=== PATIENT | male | born 1940 | race Caucasian/White ===

== ENCOUNTER 2017-07-13 08:45 | Emergency (ER) | payer MEDICARE, OTHER ==
--- NOTE | 2017-07-13 08:56 | ER Document Report ---
ED Neuro Symptoms/Deficit - General Stated Complaint: LEFT SIDE WEAKNESS Time Seen by Provider: 07/13/17 08:55 Mode of Arrival: Medic Notes: Patient states that he woke up this morning and was fine. Walk to the mailbox to get the newspaper. Came back and noticed that he was unable to move his right arm and right leg. Had weakness on the right side. No obvious slurred speech. EMS arrived. Did appreciate right-sided weakness but no facial droop. Currently patient with mild facial droop on the right side but no slurred speech. No difficulty swallowing. Patient has an NIH stroke scale of [address] arrival. Stat head CT ordered. Head CT shows previous multiple infarcts. With patient's previous history and current history of multiple myeloma with abnormalities on blood work will need to get stat CBC. Consult radiology and getting stat MRI at this time as must exclude neoplasm at this time before getting thrombolytics as well as evaluate his platelet counts. - HPI Patient complains to provider of: Difficulty standing, Difficulty walking, Facial Droop, Paresthesia, Weakness Onset: Just prior to arrival Duration: Better, Continues in ED Quality of pain: No pain Severity: Severe Pain Level: 0 Was STROKE ALERT Called: Yes Baseline Cognitive: Alert, oriented X 3 Baseline Gait: Walks w/o assistance Pre-existing weakness: No: Face, General, Hand, Lower extremity, Upper extremity Alert To: Name/Voice Patient Orientation: Person, Place, Time, Events Character of altered mental status: No: Agitated, Confused, Combative, Decreased responsiveness, Disoriented, Seizure activity, Trouble concentrating, Unchanged from baseline, Unresponsive New weakness: RUE, RLE, R facial Altered sensation: RUE, RLE, R facial Decreased ability to stand/walk: Cannot walk, Cannot stand Vision problem/glaucoma: No Associated symptoms: None - Related Data Allergies/Adverse Reactions: No Known Allergies Allergy (Unverified 07/13/17 09:34) Past Medical History - General Information source: Patient - Social History Smoking Status: Never Smoker Cigarette use (# per day): No Smoking Education Provided: No Frequency of alcohol use: None Drug Abuse: None Lives with: Family Family History: None, Reviewed & Not Pertinent - Past Medical History Cardiac Medical History: Reports: None Pulmonary Medical History: Reports: None EENT Medical History: Reports: None Neurological Medical History: Reports: None Endocrine Medical History: Reports: None Renal/ Medical History: Reports: None Malignancy Medical History: Reports Other - Multiple myeloma GI Medical History: Reports: None Musculoskeltal Medical History: Reports None Skin Medical History: Reports None Psychiatric Medical History: Reports: None Review of Systems - Review of Systems Constitutional: Weakness. denies: Fever, Malaise EENT: denies: Eye pain, Eye discharge, Blurred vision, Tearing, Double vision, Difficulty swallowing, Mouth pain Respiratory: denies: Cough, Hurts to breathe, Short of breath, Wheezing Gastrointestinal: denies: Abdominal pain, Diarrhea, Nausea, Vomiting Genitourinary: denies: Dysuria, Discharge, Hematuria Musculoskeletal: Other - Weakness on right side. Weakness right upper extremity , right lower extremity Skin: No symptoms reported Hematologic/Lymphatic: Easy bleeding, Easy bruising, Other - Strip multiple myeloma. denies: Blood clots Neurological/Psychological: See HPI, Sensory change, Weakness, Gait changes, Numbness Physical Exam - Vital signs Interpretation: Normal - General General appearance: Appears well, Alert - HEENT Head: Normocephalic, Atraumatic Eyes: Normal Pupils: PERRL Notes: Patient does have slight asymmetry with smile on the right side of the face. Does not involve the forehead muscles. Slight deviation of the tongue - Respiratory Respiratory status: No respiratory distress Chest status: Nontender Breath sounds: Normal Chest palpation: Normal - Cardiovascular Rhythm: Regular Heart sounds: Normal auscultation Murmur: No - Abdominal Inspection: Normal Distension: No distension Bowel sounds: Normal Tenderness: Nontender Organomegaly: No organomegaly - Back Back: Normal, Nontender - Extremities General upper extremity: Normal inspection, Nontender, Normal color, Normal ROM , Normal temperature General lower extremity: Normal inspection, Nontender, Normal color, Normal ROM , Normal temperature, Normal weight bearing. No: Kiley's sign - Neurological Neuro grossly intact: Yes Cognition: Normal Orientation: AAOx4 [place] Coma Scale Eye Opening: Spontaneous [place] Coma Scale Verbal: Oriented [place] Coma Scale Motor: Obeys Commands [place] Coma Scale Total: 15 Speech: Normal Cranial nerves: Facial palsy, Forehead sparing, Sensory deficit, Tongue deviation Cerebellar coordination: No: Finger-nose rhombey Motor strength normal: LUE, LLE. No: RUE, RLE Additional motor exam normals: Pronator drift, Weakness. No: Equal cleaner carpet and upholstery Sensory: Altered light touch - Psychological Associated symptoms: Normal affect, Normal mood - Skin Skin Temperature: Warm Skin Moisture: Dry Skin Color: Normal Course - Re-evaluation Re-evalutation: 07/13/17 09:32 By criteria patient has had an acute infarct infecting most likely the left middle cerebral artery. Patient's symptoms are mildly improving but still noticeably abnormal. With his history of malignancy I am hesitant to give thrombolytics. Ordering a stat MRI as having a lesion in the brain which could be causing this would be catastrophic in the setting of lumbar lytics. Will give aspirin. Head CT reviewed. No hemorrhage. Patient does manifest signs on CT scan of multiple CVAs per 07/13/17 10:06 MRI does not show any lesions other than acute CVA as expected. No neoplasm. Spoke with the family while patient was at MRI. Apparently patient has dementia. is the power of real estate attorney and medical decision maker. On discussing the risks and benefits associated with thrombolytics the says that she does not wish for me to give thrombolytics at this time. They are requesting immediate transfer [facility] where [facility] specialists [facility]. I am attempting to speak with the neurologist and get patient transferred immediately. 07/13/17 10:15 Discussed the case with neurologist at [facility] by Dr. Walls. Will activate stroke airlift procedures at this time. Recommends giving patient a 500 L bolus of normal saline at this time. - Laboratory Result Diagrams: 07/13/17 08:58 07/13/17 08:58 - EKG Interpretation by Me EKG shows normal: Sinus rhythm, Intervals, QRS Complexes, ST-T Waves [place]/QRS: Left axis deviation Critical Care Note - Critical Care Note Total time excluding time spent on procedures (mins): 60 Comments: Acute CVA, consultation with specialists, coordination of care ED [employer]/Exc Criteria - Date/Time patient last known well: Date/Time: - Inclusion Criteria: 1: Patient presented to ED within 3 hours of acute ischemic stroke symptom onset ? -: Yes 2: Did baseline CT exclude intracranial hemorrhage and/or other risk factors? -: Yes 3: Is the age of the patient 18 years of age or greater? -: Yes : If any of the above questions are answered "NO" then stop, patient is not a candidate for Alteplase, : If all of the above questions are answered "YES" then continue with Exclusion Criteria. - Exclusion Criteria: 1: Is there evidence of intracranial hemorrhage on baseline CT? -: No 2: Is there suspicion of subarachnoid hemorrhage (even if CT negative)? -: No 3: Is there a history of serious head trauma, recent previous stroke or NC within 3 months? -: No 4: Does the patient have a clinical presentation consistent with NC or post-NC pericarditis? -: No 5: Is there history of intracranial hemorrhage? -: No 6: On repeated measurement is Systolic BP greater than 185mmHg or Diastolic BP greater that 110 mmHg and is aggressive treatment needed to reduce blood pressure to these limits (e.g. constant infusion of an anti-hypertensive)? -: No 7: Did the patient awake with stroke symptoms? -: No 8: Has the patient had a lumbar puncture or an arterial puncture at a non- compressile site within 7 days? -: No 9: With in the last 14 days did the patient have surgery or major trauma? -: No 10: Is the patient or less than 2 weeks? -: No 11: Was there any active bleeding or acute trauma? -: No 12: Does the patient have intracranial neoplasm, arteriovenous malformation or aneurysm? -: No 13: Does the patient have abnormal glucose (less than 50 or greater than 400mg/ dl)? Record glucose in Comment. -: No 14: Patient has rapidly improving symptoms at the time Alteplase is to be Administered. -: No 15: Does the patient have any risks for bleeding, including but not limited to: a.: Current use of Coumadin with PT greater than 15 seconds or INR greater than 1.7. b.: Current use of Pradaxa (Dabigatran). c.: Heparin administereed within the past 48 hours and PTT elevated. d.: Platelet count less than 100,000/mm. e.: Major surgery or serious trauma within 14 days. f.: Gastrointestinal or gynecological urinary bleeding within 14 days. g.: Myocardial Infarction (NC) within 3 months. -: No : If the answer to any of the above questions is "YES" then stop, the patient is not a candidate for Alteplase. : If the answer to all of the above questions is "NO" then the patient may be eligible for the Administration of Alteplase. : If the patient is noted to have seizure activity at onset of Stroke symptoms; Consult Neurologist for further evaluation. - The patient is: -: Included and is eligible to receive Alteplase. *Initiate bed placement at higher level of care* --: Yes Reviewd risks & benefits of thrombolytic therapy: I have reviewed the risks and benefits of thrombolytic therapy with the patient and/or his/her family. Yes -: Excluded and not eligible to receive Alteplase for the above exclusions. --: No -: Excluded and not eligible to receive Alteplase for other reasons (specify in comments): --: No - Diagnosis of TIA: -: Patient presented with transient symptoms that are now resolved and no other neurologic findings are currently present. List symptoms in comments. -: No -: Patient is NOT a candidate for tPA. -: No -: ____(put name in comment) has been consulted for admission and continued evaluation of risk factor assessment. Discharge - Discharge Clinical Impression: Acute embolic stroke Condition: Good Disposition: [facility] Admitting Provider: Dr. Walls Referrals: SHIVANI HUFF MD [Primary Care Provider] - Follow up as needed
[2017-07-13] MEDS ORDERED: ASPIRIN 81 MG TABLET, CHEWABLE PO ONE (09:02)
[2017-07-13 09:07] LABS: ABSOLUTE BASOPHILS # (AUTO) 0.1 10^3/uL (0.0-0.2); ABSOLUTE EOSINOPHILS # (AUTO) 0.1 10^3/uL (0.0-0.6); ABSOLUTE LYMPHOCYTES (AUTO) 1.1 10^3/uL (0.5-4.7); ABSOLUTE MONOCYTES (AUTO) 0.4 10^3/uL (0.1-1.4); BASOPHILS % (AUTO) 0.9 % (0-2); EOSINOPHILS % (AUTO) 1.7 % (0-6); HEMATOCRIT 41.7 % (37.9-51.0); LYMPHOCYTES % (AUTO) 16.8 % (13-45); MEAN CORPUSCULAR HEMOGLOBIN 29.3 pg (27.0-33.4); MEAN CORPUSCULAR HGB CONC 33.7 g/dL (32.0-36.0); MEAN CORPUSCULAR VOLUME 87 fl (80-97); MONOCYTES % (AUTO) 5.8 % (3-13); PLATELET COUNT 113 10^3/uL (150-450); RED BLOOD COUNT 4.79 10^6/uL (4.35-5.55); RED CELL DISTRIBUTION WIDTH 14.3 % (11.5-14.0); SEGMENTED NEUTROPHILS % (AUTO) 74.8 % (42-78); TOTAL CELLS COUNTED % (AUTO) 100 %; WHITE BLOOD COUNT 6.7 10^3/uL (4.0-10.5)
--- NOTE | 2017-07-13 09:07 | RADIOLOGY REPORT (SQ) ---
EXAM DESCRIPTION: CT HEAD WITHOUT COMPLETED DATE/TIME: 07/13/2017 8:56 am REASON FOR STUDY: bed 11 stroke alert COMPARISON: None. TECHNIQUE: Axial images acquired through the brain without intravenous contrast. Images reviewed wi th bone, brain and subdural windows. Images stored on PACS. All CT scanners at this facility use dose modulation, iterative reconstruction, and/or weight based d osing when appropriate to reduce radiation dose to as low as reasonably achievable (ALARA). [facility]: Dose Right [facility]: CareDose [facility]: Dose Right [facility]: Teradose 4D [facility]: [employer] RADIATION DOSE: 64.6 mGy. LIMITATIONS: None. FINDINGS: VENTRICLES: Normal size and contour. CEREBRUM: No masses. No acute hemorrhage. No midline shift. No evidence for large territory acute infarction. There is moderate bifrontal and biparietal chronic small vessel ischemic change. Old lac unar infarcts are present in the left frontal deep periventricular white matter, right posterior limb internal capsule and right thalamus. CEREBELLUM: Multiple chronic appearing lacunar infarcts are present in the bilateral cerebellar hemis pheres. No posterior fossa acute hemorrhage. No mass effect or midline shift. EXTRAAXIAL SPACES: No fluid collections. No masses. ORBITS AND GLOBE: No intra- or extraconal masses. Normal contour of globe without masses. CALVARIUM: No fracture. PARANASAL SINUSES: No fluid or mucosal thickening. SOFT TISSUES: No mass or hematoma. OTHER: No other significant finding. IMPRESSION: Chronic appearing small vessel disease in the hemispheres with multiple lacunar infarcts in the hemispheres and cerebellum. No CT evidence of acute intracranial hemorrhage or acute large territory ischemic change EVIDENCE OF ACUTE STROKE: NO. COMMENT: Pertinent findings on the imaging study reported as a CRITICAL RESULT to NEELIMA PARSON DO at08:50 on 07/13/2017. Category of Critical Result: CT code stroke Quality ID # [id number]: Final reports with documentation of one or more dose reduction techniques (e.g., Au tomated exposure control, adjustment of the mA and/or kV according to patient size, use of iterative reconstruction technique) TECHNICAL DOCUMENTATION: JOB ID: [id number] [employer]- All Rights Reserved
[2017-07-13 09:09] LABS: INTERNATIONAL RATION (INR) 0.96; PROTHROMBIN TIME 13.5 SEC (11.4-15.4)
[2017-07-13 09:10] LABS: PARTIAL THROMBOPLASTIN TIME 31.4 SEC (23.5-35.8)
[2017-07-13 09:30] LABS: ANION GAP 10 (5-19); BILIRUBIN,DIRECT 0.3 mg/dL (0.0-0.4); BILIRUBIN,TOTAL 0.5 mg/dL (0.2-1.3); CALCIUM 9.5 mg/dL (8.4-10.2); CARBON DIOXIDE 27 mmol/L (22-30); CHLORIDE 104 mmol/L (98-107); CREATINE KINASE 38 U/L (55-170); GLUCOSE 202 mg/dL (75-110); SODIUM 140.6 mmol/L (137-145); TOTAL PROTEIN 7.2 g/dL (6.3-8.2)
[2017-07-13 09:32] LABS: BLOOD UREA NITROGEN 19 mg/dL (7-20)
[2017-07-13 09:33] LABS: ALANINE AMINOTRANSFERASE 22 U/L (21-72); ALKALINE PHOSPHATASE 41 U/L (38-126); ASPARTATE AMINO TRANSFERASE 43 U/L (17-59); POTASSIUM 4.3 mmol/L (3.6-5.0)
[2017-07-13 09:42] LABS: CREATINE KINASE MB 0.56 ng/mL (<4.55)
[2017-07-13 09:45] LABS: TROPONIN I < 0.012 ng/mL
[2017-07-13] MEDS ORDERED: ALTEPLASE INJ 100 MG VIAL IV ONE (09:53)
--- NOTE | 2017-07-13 10:07 | RADIOLOGY REPORT (SQ) ---
EXAM DESCRIPTION: MRI HEAD WITHOUT COMPLETED DATE/TIME: 07/13/2017 9:55 am REASON FOR STUDY: Acute right-sided weakness with history of multipl COMPARISON: CT brain 07/13/2017 TECHNIQUE: Multiplanar imaging includes non-contrasted T1, T2, FLAIR, and diffusion with ADC map seq uences. Images stored on PACS. LIMITATIONS: None. FINDINGS: ANATOMY: No developmental anomalies. Normal vascular flow voids. Pituitary fossa normal. CSF SPACES: Normal in size and contour. No hemorrhage. CEREBRUM: Diffusion-weighted images are positive for a small acute infarct in the left posterior limb internal capsule/ lateral thalamus, best shown on diffusion axial image 16. There is moderate deep periventricular white matter disease in the bifrontal and biparietal regions. Old lacunar infarcts are present in the left posterior frontal deep periventricular white matter, ri ght posterior internal capsule, right thalamus. No MR evidence of acute intracranial hemorrhage. No mass effect or midline shift. POSTERIOR FOSSA: Moderate chronic small vessel disease in the mid [place]. Multiple old lacunar infarct s in the right and left cerebellar hemispheres. No acute ischemic change in the posterior fossa. No acute hemorrhage. No mass effect. DIFFUSION IMAGING: Positive as above ORBITS: No masses. Globes normal. PARANASAL SINUSES: Opacified right frontal sinus OTHER: No other significant finding. IMPRESSION: Small acute nonhemorrhagic infarct, positive on diffusion weighted images along the left posterior limb internal capsule/ lateral thalamus EVIDENCE OF ACUTE STROKE: Yes COMMENT: Pertinent findings on the imaging study reported as a CRITICAL RESULT to NEELIMA PARSON DO at09:45 on 07/13/2017. Category of Critical Result: Acute nonhemorrhagic stroke TECHNICAL DOCUMENTATION: JOB ID: [id number] [employer]- All Rights Reserved
[2017-07-13] MEDS ORDERED: NORMAL SALINE 500 ML IV ONE (10:16)
--- NOTE | 2017-07-13 10:29 | RADIOLOGY REPORT (SQ) ---
EXAM DESCRIPTION: CHEST SINGLE VIEW COMPLETED DATE/TIME: 07/13/2017 10:16 am REASON FOR STUDY: bed 11 stroke alert COMPARISON: None. EXAM PARAMETERS: NUMBER OF VIEWS: One view. TECHNIQUE: Single frontal radiographic view of the chest acquired. RADIATION DOSE: NA LIMITATIONS: Poor inspiration. FINDINGS: LUNGS AND PLEURA: No opacities, masses or pneumothorax. No pleural effusion. MEDIASTINUM AND HILAR STRUCTURES: No masses. Contour normal. HEART AND VASCULAR STRUCTURES: Heart and vasculature within normal limits allowing for the poor inspi ration. BONES: No acute findings. HARDWARE: None in the chest. OTHER: No other significant finding. IMPRESSION: NO ACUTE RADIOGRAPHIC FINDING IN THE CHEST. TECHNICAL DOCUMENTATION: JOB ID: [id number] [employer]- All Rights Reserved
[2017-07-13 10:46] VITALS: BP 160/81
--- NOTE | 2017-07-13 13:00 | EKG REPORT ---
SEVERITY:- BORDERLINE ECG - SINUS RHYTHM LEFT AXIS DEVIATION CONSIDER RIGHT VENTRICULAR HYPERTROPHY BORDERLINE R WAVE PROGRESSION, ANTERIOR LEADS : Confirmed by: Dane Flowers MD 13-Jul-2017 12:59:30
== END 2017-07-13 10:50 | disposition short-term general hospital (02) ==
LOC: ER 08:45
DX: I63.412 Cerebral infarction due to embolism of left middle cerebral artery (principal); G81.94 Hemiplegia, unspecified affecting left nondominant side; R29.810 Facial weakness; H53.47 Heteronymous bilateral field defects; R27.0 Ataxia, unspecified
CPT/HCPCS: 93005; 99291; 36415; 82553; 82550; 85025; 85610; 85730; 80053; 84484; 70551; 71045; 70450; 93010; A9270

== ENCOUNTER 2019-03-27 10:05 | Observation (INO) | payer MEDICARE, OTHER ==
--- NOTE | 2019-03-27 11:37 | RADIOLOGY REPORT (SQ) ---
EXAM DESCRIPTION: CT HEAD WITHOUT COMPLETED DATE/TIME: 03/27/2019 11:26 am REASON FOR STUDY: ams/fall/vomit COMPARISON: 07/13/2017. TECHNIQUE: Axial images acquired through the brain without intravenous contrast. Images reviewed wi th bone, brain and subdural windows. Additional sagittal and coronal reconstructions were generated. Images stored on PACS. All CT scanners at this facility use dose modulation, iterative reconstruction, and/or weight based d osing when appropriate to reduce radiation dose to as low as reasonably achievable (ALARA). [facility]: Dose Right [facility]: CareDose [facility]: Dose Right [facility]: Teradose 4D [facility]: [employer] RADIATION DOSE: CT Rad equipment meets quality standard of care and radiation dose reduction techniq ues were employed. CTDIvol: 53.2 mGy. DLP: 1017 mGy-cm. mGy. LIMITATIONS: None. FINDINGS: VENTRICLES: Prominent. CEREBRUM: No masses. No hemorrhage. No midline shift. Areas of low density in the white matter mos t likely due to chronic micro-vascular ischemic change. Old lacunar infarcts. No evidence for acute infarction. CEREBELLUM: No masses. No hemorrhage. No alteration of density. No evidence for acute infarction. EXTRAAXIAL SPACES: Mild age-related involutional change. No fluid collections. No masses. ORBITS AND GLOBE: No intra- or extraconal masses. Normal contour of globe without masses. CALVARIUM: No fracture. PARANASAL SINUSES: No fluid or mucosal thickening. SOFT TISSUES: No mass or hematoma. OTHER: No other significant finding. IMPRESSION: MILD CHRONIC CHANGES OF ATROPHY AND MICROVASCULAR ISCHEMIA. OLD LACUNAR INFARCTS. NO A CUTE PROCESS. EVIDENCE OF ACUTE STROKE: NO. TECHNICAL DOCUMENTATION: JOB ID: [id number] Quality ID # [id number]: Final reports with documentation of one or more dose reduction techniques (e.g., Au tomated exposure control, adjustment of the mA and/or kV according to patient size, use of iterative reconstruction technique) 2010 [employer]- All Rights Reserved Reading location - IP/workstation name: [email or web address]
[2019-03-27 11:48] LABS: ABSOLUTE BASOPHILS # (AUTO) 0.1 10^3/uL (0.0-0.2); ABSOLUTE EOSINOPHILS # (AUTO) 0.1 10^3/uL (0.0-0.6); ABSOLUTE LYMPHOCYTES (AUTO) 1.7 10^3/uL (0.5-4.7); ABSOLUTE MONOCYTES (AUTO) 0.5 10^3/uL (0.1-1.4); ABSOLUTE NEUT (AUTO) 5.9 10^3/uL (1.7-8.2); BASOPHILS % (AUTO) 0.8 % (0-2); EOSINOPHILS % (AUTO) 1.3 % (0-6); HEMATOCRIT 41.1 % (37.9-51.0); HEMOGLOBIN 13.7 g/dL (13.5-17.0); LYMPHOCYTES % (AUTO) 20.5 % (13-45); MEAN CORPUSCULAR HEMOGLOBIN 30.2 pg (27.0-33.4); MEAN CORPUSCULAR HGB CONC 33.3 g/dL (32.0-36.0); MEAN CORPUSCULAR VOLUME 91 fl (80-97); MONOCYTES % (AUTO) 5.7 % (3-13); RED BLOOD COUNT 4.53 10^6/uL (4.35-5.55); RED CELL DISTRIBUTION WIDTH 14.6 % (11.5-14.0); SEGMENTED NEUTROPHILS % (AUTO) 71.7 % (42-78); TOTAL CELLS COUNTED % (AUTO) 100 %; WHITE BLOOD COUNT 8.2 10^3/uL (4.0-10.5)
[2019-03-27 11:52] LABS: ALBUMIN 3.9 g/dL (3.5-5.0); ALKALINE PHOSPHATASE 36 U/L (38-126); ANION GAP 7 (5-19); ASPARTATE AMINO TRANSFERASE 25 U/L (17-59); BILIRUBIN,DIRECT 0.3 mg/dL (0.0-0.4); BLOOD UREA NITROGEN 22 mg/dL (7-20); CALCIUM 9.4 mg/dL (8.4-10.2); CARBON DIOXIDE 26 mmol/L (22-30); CHLORIDE 107 mmol/L (98-107); GLUCOSE 131 mg/dL (75-110); POTASSIUM 4.1 mmol/L (3.6-5.0); TOTAL PROTEIN 7.2 g/dL (6.3-8.2)
[2019-03-27 13:40] LABS: PLATELET COUNT 90 10^3/uL (150-450)
[2019-03-27 13:48] LABS: APPEARANCE,URINE SLIGHTLY-CLOUDY; BILIRUBIN,URINE NEGATIVE (NEGATIVE); COLOR,URINE YELLOW; GLUCOSE, URINE NEGATIVE (NEGATIVE); KETONES,URINE TRACE mg/dL (NEGATIVE); LEUKOCYTE ESTERASE,URINE NEGATIVE (NEGATIVE); NITRITE,URINE NEGATIVE (NEGATIVE); PROTEIN,URINE 30 mg/dL (NEGATIVE); URINE SPECIFIC GRAVITY 1.024
--- NOTE | 2019-03-27 15:07 | ER Document Report ---
ED Fall - General Chief Complaint: Fall Stated Complaint: FALL/VOMITING Time Seen by Provider: 03/27/19 10:16 Primary Care Provider: SHIVANI HUFF MD [Primary Care Provider] - Follow up as needed Mode of Arrival: Stretcher Information source: Patient TRAVEL OUTSIDE OF THE [place] IN LAST 30 DAYS: No - HPI Notes: 78-year-old male patient brought in by ambulance. Family is in the room and gives the history. Patient has dementia and is not a good historian. Family states they called the ambulance today because after eating breakfast the patient got up to walk into another room of the house. As he was walking he fell to the ground and was not responsive for several minutes. He also was vomiting during this episode. Upon arrival here at family states they feel he is back to normal. They states he had a similar episode 2 years ago and was given TPA for stroke at that time. Patient does have frequent falls at home per family. Family also states that all of his recent meds have been discontinued per his doctor except for Aricept and aspirin. Patient has had no recent fevers cough or rashes. No known significant trauma. Patient denies any pain or problems at this time. Symptoms were apparently severe. Nothing known made them better or worse. They were intermittent. Lasting approximately 5 to 10 minutes. There is no known radiation of the symptoms. - Related data Allergies/Adverse Reactions: No Known Allergies Allergy (Unverified 07/13/17 09:34) Past Medical History - Social History Smoking Status: Former Smoker Frequency of alcohol use: None Drug Abuse: None Family History: None, Reviewed & Not Pertinent Patient has suicidal ideation: No Patient has homicidal ideation: No - Past Medical History Cardiac Medical History: Reports: Hx Hypertension - unmedicated Renal/ Medical History: Denies: Hx Peritoneal Dialysis Past Surgical History: Reports: Hx Tonsillectomy Review of Systems - Review of Systems -: Yes ROS unobtainable due to patient's medical condition - Review of symptoms is unobtainable due to patient's dementia Physical Exam - Vital signs Vitals: Temp Pulse Resp BP Pulse Ox 97.6 F 55 L 18 138/75 H 94 03/27/19 10:20 03/27/19 10:20 03/27/19 10:20 03/27/19 10:20 03/27/19 10:20 Interpretation: Normal - General General appearance: Appears well, Alert In distress: None - HEENT Head: Normocephalic, Atraumatic Eyes: Normal Pupils: PERRL - Respiratory Respiratory status: No respiratory distress Chest status: Nontender Breath sounds: Normal Chest palpation: Normal - Cardiovascular Rhythm: Regular Heart sounds: Normal auscultation Murmur: No - Abdominal Inspection: Normal Distension: No distension Bowel sounds: Normal Tenderness: Nontender Organomegaly: No organomegaly - Back Back: Normal, Nontender - Extremities General upper extremity: Normal inspection, Nontender, Normal color, Normal ROM, Normal temperature General lower extremity: Normal inspection, Nontender, Normal color, Normal ROM, Normal temperature, Normal weight bearing. No: Kiley's sign - Neurological Cognition: Confused Orientation: Disoriented to place, Disoriented to time Brenna Coma Scale Eye Opening: Spontaneous [place] Coma Scale Verbal: Confused Brenna Coma Scale Motor: Obeys Commands [place] Coma Scale Total: 14 Speech: Normal Motor strength normal: LUE, RUE, LLE, RLE Sensory: Normal - Psychological Associated symptoms: Normal affect, Normal mood - Skin Skin Temperature: Warm Skin Moisture: Dry Skin Color: Normal Course - Re-evaluation Re-evalutation: 03/27/19 15:05 Patient is brought in after an episode at home where he had syncope and vomit ing. Work-up here is unremarkable. However this is a 78-year-old patient with dementia he cannot give me a good history. It seems most prudent at this time for patient to have a period of in-hospital observation for the syncope. - Vital Signs Vital signs: Temp Pulse Resp BP Pulse Ox 97.6 F 55 L 15 173/81 H 96 03/27/19 10:20 03/27/19 10:20 03/27/19 13:02 03/27/19 13:02 03/27/19 13:02 - Laboratory Result Diagrams: 03/27/19 10:13 03/27/19 10:13 Laboratory results interpreted by me: 03/27/19 03/27/19 03/27/19 10:13 10:13 12:42 RDW 14.6 H Plt Count 90 L BUN 22 H Est GFR (MDRD) Non-Af 59 L Glucose 131 H Alkaline Phosphatase 36 L Urine Protein 30 H Urine Ketones TRACE H Urine Urobilinogen 2.0 H - Diagnostic Test Radiology reviewed: Image reviewed, Reports reviewed - EKG Interpretation by Me EKG shows normal: Sinus rhythm Rate: Bradycardia - 50 Rhythm: NSR, PVC's [place]/QRS: Left axis deviation Discharge - Discharge Clinical Impression: Syncope and collapse Dementia Qualifiers: Dementia type: Alzheimer's disease Alzheimer's disease onset: late-onset Dementia behavioral disturbance: without behavioral disturbance Qualified Code(s): G30.1 - Alzheimer's disease with late onset; F02.80 - Dementia in other diseases classified elsewhere without behavioral disturbance Condition: Stable Disposition: ADMITTED OBSERVATION Admitting Provider: Vlad (Hospitalist) Unit Admitted: Medical Floor Referrals: SHIVANI HUFF MD [Primary Care Provider] - Follow up as needed
[2019-03-27] MEDS ORDERED: MAG HYDROX/AL HYDROX/SIMETH SUSP 30 ML UDCUP PO PRN (17:32)
[2019-03-27] MEDS ORDERED: ONDANSETRON 4 MG TAB.RAPDIS PO PRN (17:32)
[2019-03-27] MEDS ORDERED: ACETAMINOPHEN 325 MG TABLET PO PRN (17:32)
[2019-03-27] MEDS ORDERED: ACETAMINOPHEN 650 MG SUPP.RECT PR PRN (17:32)
[2019-03-27] MEDS ORDERED: MAGNESIUM HYDROXIDE SUSP 30 ML UDCUP PO PRN (17:32)
[2019-03-27] MEDS ORDERED: NORMAL SALINE 1000 ML 1,000 ML IV PRN (18:16)
[2019-03-27] MEDS ORDERED: AMLODIPINE BESYLATE 5 MG TABLET PO ONE (18:20)
--- NOTE | 2019-03-27 18:30 | PDOC H&P ---
History of Present Illness Admission Date/PCP: 03/27/19 15:19 SHIVANI HUFF MD Patient complains of: Physical collapse with episode of emesis. History of Present Illness: MULUGETA MATHEWS is a 78 year old male with a history of stroke approximately 2 years ago. He also has a history of multiple myeloma in 2009. He is status post stem cell transplant at [facility]. Since that time he has had some left-sided weakness/numbness. He uses a walker around the home. His reports that he ate breakfast in his usual fashion. When he was walking back to the bedroom he felt weak. He collapsed like a rag doll. He did not pass out but he felt dazed. His reports that he "hit "his head on a soft pillow or bag but no sharp object. They had him sit up and he proceeded to vomit. She did remove his dentures. That he did not report any significant coughing with the emesis. By the time the paramedics arrived he had no more vomiting but still felt slightly nauseous. His stroke was approximately 2 years ago. He has had several of these episodes and the last one was approximately 5 months ago. The patient's reports that he used to take medication for hypertension but was taken off of the medicine because of low blood pressure. In addition he has chronic dementia and the patient's stopped his Aricept because she thought it made him "worse ". The family is quite concerned about stroke. The patient had a minimally elevated BUN. He does have thrombocytopenia. Electrolytes and liver panel as well as CBC was relatively unremarkable. He did exhibit some proteinuria. In addition, during my encounter, I did find out that over the last several months the patient has exhibited coughing when eating and drinking. This occurs especially with thin liquids. The patient was referred to the hospital service. Past Medical History Cardiac Medical History: Reports: Hypertension - unmedicated Denies: Congestive Heart Failure, Coronary Artery Disease, Myocardial Infarction Pulmonary Medical History: Denies: Asthma, Chronic Obstructive Pulmonary Disease (COPD), Respiratory Failure EENT Medical History: Denies: Ears, Nose, Throat Neurological Medical History: Reports: Ischemic CVA Endocrine Medical History: Denies: Diabetes Mellitus Type 2, Hypothyroidism Renal/ Medical History: Denies: Chronic Kidney Disease, Nephrolithiasis Malignancy Medical History: Reports: None GI Medical History: Denies: Cirrhosis, Gastroesophageal Reflux Disease, Hepatitis, Ulcerative Colitis Musculoskeltal Medical History: Denies: Arthritis, Fibromyalgia Skin Medical History: Denies: Eczema, Psoriasis Psychiatric Medical History: Denies: Alcohol Dependency, Depression, Post Traumatic Stress Disorder, Substance Abuse, Tobacco Dependency Traumatic Medical History: Reports: None Hematology: Denies: Anemia, Bleeding Tendencies Infectious Medical History: Reports: None Past Surgical History Past Surgical History: Reports: Tonsillectomy, Other - Stem cell transplant Social History Information Source: Patient, Relative Lives with: Spouse/Significant other Smoking Status: Former Smoker Frequency of Alcohol Use: None Hx Recreational Drug Use: No Hx Prescription Drug Abuse: No - Advance Directive Resuscitation Status: Full Code Surrogate healthcare decision maker:: The patient's is the designated decision maker. The patient did have a DNR and living well in the past. They believe these have . The patient's daughter was adamant that he be a full code and stated that alternate decisions can be made if there is a catastrophic event. Family History Family History: CAD Parental Family History Reviewed: Yes - They believe mother had heart disease Children Family History Reviewed: Yes Sibling(s) Family History Reviewed.: Yes Medication/Allergy Home Medications: Aspirin [Ecotrin 81 mg EC Tablet] 81 mg PO DAILY 03/27/19 Allergies/Adverse Reactions: No Known Allergies Allergy (Unverified 07/13/17 09:34) Review of Systems Constitutional: PRESENT: weakness. ABSENT: anorexia, chills, fever(s) Eyes: PRESENT: visual disturbances - Left eye not as clear as right eye Ears: ABSENT: hearing changes Nose, Mouth, and Throat: ABSENT: headache(s), mouth pain, sore throat Cardiovascular: PRESENT: edema - Trace pedal edema. ABSENT: chest pain, dyspnea on exertion, palpitations Respiratory: ABSENT: cough, dyspnea, hemoptysis, sputum Gastrointestinal: PRESENT: constipation - reports that the patient tends towards constipation, dysphagia, nausea, vomiting. ABSENT: abdominal pain, heartburn, hematemesis Genitourinary: PRESENT: nocturia, other - Frequent urination. ABSENT: dysuria, hematuria Musculoskeletal: ABSENT: deformity, joint swelling Integumentary: PRESENT: other - Easy bruising. ABSENT: diaphoresis Neurological: PRESENT: memory loss Psychiatric: ABSENT: anxiety, depression, hallucinations Endocrine: PRESENT: polyuria. ABSENT: cold intolerance, heat intolerance Hematologic/Lymphatic: PRESENT: easy bruising Physical Exam Vital Signs: Temp Pulse Resp BP Pulse Ox 97.6 F 55 L 13 177/84 H 97 03/27/19 10:20 03/27/19 10:20 03/27/19 17:02 03/27/19 17:02 03/27/19 17:02 Intake & Output 03/26/19 03/27/19 03/28/19 06:59 06:59 06:59 Weight 91.6 kg General appearance: PRESENT: no acute distress, cooperative, well-developed Head exam: PRESENT: atraumatic, normocephalic Eye exam: PRESENT: conjunctiva pale, EOMI. ABSENT: nystagmus, PERRLA - Anisocoria with left pupil larger than right. Left pupil is not as reactive as the right., scleral icterus Ear exam: PRESENT: normal external ear exam. ABSENT: bleeding, drainage Mouth exam: PRESENT: moist, tongue midline, other - Dentures Neck exam: ABSENT: carotid bruit, thyromegaly, tracheostomy Respiratory exam: PRESENT: clear to auscultation navya, symmetrical, unlabored. ABSENT: accessory muscle use, rales, rhonchi, tachypnea, wheezes Cardiovascular exam: PRESENT: RRR, +S1, +S2, systolic murmur - 1/6 Pulses: PRESENT: normal radial pulses, normal dorsalis pedis pul GI/Abdominal exam: PRESENT: normal bowel sounds, soft. ABSENT: distended, tenderness Rectal exam: PRESENT: deferred Gentrourinary exam: ABSENT: indwelling catheter Extremities exam: PRESENT: pedal edema. ABSENT: joint swelling, tenderness Musculoskeletal exam: PRESENT: normal inspection. ABSENT: deformity, tenderness Neurological exam: PRESENT: alert, awake, oriented to person, oriented to place, oriented to situation Psychiatric exam: PRESENT: appropriate affect. ABSENT: agitated, anxious Focused psych exam: ABSENT: delusional, restlessness Skin exam: PRESENT: dry, warm, other - Multiple ecchymotic areas especially left arm and hand Results Laboratory Results: 03/27/19 10:13 03/27/19 10:13 03/27/19 03/27/19 03/27/19 10:13 10:13 12:42 WBC 8.2 RBC 4.53 Hgb 13.7 Hct 41.1 MCV 91 MCH 30.2 MCHC 33.3 RDW 14.6 H Plt Count 90 L Seg Neutrophils % 71.7 Sodium 139.5 Potassium 4.1 Chloride 107 Carbon Dioxide 26 Anion Gap 7 BUN 22 H Creatinine 1.20 Est GFR ( Amer) > 60 Glucose 131 H Calcium 9.4 Total Bilirubin 1.0 AST 25 Alkaline Phosphatase 36 L Total Protein 7.2 Albumin 3.9 Urine Color YELLOW Urine Appearance SLIGHTLY-CLOUDY Urine pH 5.0 Ur Specific [place] 1.024 Urine Protein 30 H Urine Glucose (UA) NEGATIVE Urine Ketones TRACE H Urine Blood NEGATIVE Urine Nitrite NEGATIVE Ur Leukocyte Esterase NEGATIVE Urine WBC (Auto) 1 Urine RBC (Auto) 1 03/27/19 10:13 Troponin I < 0.012 Impressions: Head CT 03/27/19 11:02 IMPRESSION: MILD CHRONIC CHANGES OF ATROPHY AND MICROVASCULAR ISCHEMIA. OLD LACUNAR INFARCTS. NO ACUTE PROCESS. EVIDENCE OF ACUTE STROKE: NO. Assessment and Plan - Diagnosis (1) Syncope and collapse Is this a current diagnosis for this admission?: Yes Plan: 03/27/2019-the patient's reports that he became globally weak and went down like a rag doll as opposed to a mechanical trip and fall. He is not sure if he passed out or not. The family does not think he passed out. When they sat him up on the floor he proceeded to vomit. The patient's had to remove his dentures so that he did not choke on them. He does have a history of high blood pressure but he was taken off medication because they felt the blood pressure was too low. CT scan was negative for recurrent stroke. He has been on an aspirin daily. There is no report to suggest that he was post ictal. We will monitor the patient on telemetry to rule out any arrhythmia. I am going to give him gentle fluids even though systolic pressure is up. His BUN is slightly elevated. His does report that he urinates often and so on a make sure he is euvolemic. Etiology of collapse is very unclear at this time. No definite etiology is identified. (2) Dementia Qualifiers: Dementia type: Alzheimer's disease Alzheimer's disease onset: late-onset Dementia behavioral disturbance: without behavioral disturbance Qualified Code(s): G30.1 - Alzheimer's disease with late onset; F02.80 - Dementia in other diseases classified elsewhere without behavioral disturbance Is this a current diagnosis for this admission?: Yes Plan: 03/27/2019-the patient has a history of stroke. This certainly could be vascular dementia. He has been on Aricept. The family reports that it is Alzheimer's. The patient's stopped his Aricept because she felt it was making him worse. We will continue to monitor. He is able to have meaningful conversation and was appropriate for this encounter. (3) Thrombocytopenia Is this a current diagnosis for this admission?: Yes Plan: 03/27/2019-the patient platelet count was only 90,000. I will hold off on prophylactic VTE treatment. If his platelets increase then consider adding back a heparin or Lovenox shot. We will continue his aspirin. (4) Gait disorder Is this a current diagnosis for this admission?: Yes Plan: 03/27/2019-the patient uses a walker. His states that he has had episodes like this in the past. His balance is not the best. I will have physical therapy evaluate the patient. He might benefit from physical therapy at home post discharge. (5) Dysphagia as late effect of cerebrovascular accident (CVA) Is this a current diagnosis for this admission?: Yes Plan: 03/27/2019-the patient and family report noticeably increased coughing when eating and drinking over the last several months. This certainly could be a result of progressive dementia whether it be Alzheimer's or cerebrovascular. He does have a history of a stroke as well. I have asked speech therapy to see the patient. I have ordered a regular diet but instructed nursing to change to nectar thick liquids if the patient does poorly on his bedside swallow evaluation. (6) Hypertension Qualifiers: Hypertension type: essential hypertension Qualified Code(s): I10 - Essential (primary) hypertension Is this a current diagnosis for this admission?: Yes Plan: 03/27/2019-the patient has a history of hypertension. As noted above the patient's physician stopped antihypertensive medications in the past. Because of his elevated systolic pressure of started amlodipine 5 mg daily. Diuretics were consideration but he may be slightly hypovolemic. We will continue to monitor his blood pressure. Tomorrow I will see if the family can remember the blood pressure medicines that he has been on in the past. We will also consider checking orthostatic vital signs. - Plan Summary Summary: Admit to observation status. Etiology of syncope and collapse is uncertain at this time. We will monitor his blood pressure and treat conservatively. I will also have speech therapy see the patient for clearly progressing dysphagia and physical therapy to assess his gait and strength as it is my opinion that this is likely part of a progressive dementia situation as well. - Time Time Spent with patient: 35 or more minutes Medications reviewed and adjusted accordingly: Yes Within: within 48 hours
--- NOTE | 2019-03-27 23:18 | EKG REPORT ---
SEVERITY:- ABNORMAL ECG - SINUS RHYTHM MULTIPLE VENTRICULAR PREMATURE COMPLEXES LEFT AXIS DEVIATION : Confirmed by: Jazlyn Bond 27-Mar-2019 23:17:40
[2019-03-28 04:20] LABS: ABSOLUTE BASOPHILS # (AUTO) 0.1 10^3/uL (0.0-0.2); ABSOLUTE EOSINOPHILS # (AUTO) 0.1 10^3/uL (0.0-0.6); ABSOLUTE MONOCYTES (AUTO) 0.7 10^3/uL (0.1-1.4); ABSOLUTE NEUT (AUTO) 6.2 10^3/uL (1.7-8.2); BASOPHILS % (AUTO) 0.7 % (0-2); HEMATOCRIT 39.5 % (37.9-51.0); HEMOGLOBIN 13.3 g/dL (13.5-17.0); LYMPHOCYTES % (AUTO) 21.8 % (13-45); MEAN CORPUSCULAR HEMOGLOBIN 29.7 pg (27.0-33.4); MEAN CORPUSCULAR HGB CONC 33.8 g/dL (32.0-36.0); MEAN CORPUSCULAR VOLUME 88 fl (80-97); MONOCYTES % (AUTO) 8.2 % (3-13); RED BLOOD COUNT 4.49 10^6/uL (4.35-5.55); RED CELL DISTRIBUTION WIDTH 14.6 % (11.5-14.0); SEGMENTED NEUTROPHILS % (AUTO) 68.3 % (42-78); TOTAL CELLS COUNTED % (AUTO) 100 %; WHITE BLOOD COUNT 9.1 10^3/uL (4.0-10.5)
[2019-03-28 04:34] LABS: ANION GAP 6 (5-19); BLOOD UREA NITROGEN 20 mg/dL (7-20); CALCIUM 9.3 mg/dL (8.4-10.2); CARBON DIOXIDE 26 mmol/L (22-30); CHLORIDE 109 mmol/L (98-107); GLUCOSE 86 mg/dL (75-110); POTASSIUM 4.2 mmol/L (3.6-5.0)
[2019-03-28 04:41] LABS: PLATELET COUNT 79 10^3/uL (150-450)
[2019-03-28] MEDS ORDERED: INFLUENZA QUAD (6MOS+) 2019-20 VAC 0.5 ML SYR IM ONE (08:00)
[2019-03-28] MEDS ORDERED: AMLODIPINE BESYLATE 5 MG TABLET PO SCH (10:00)
[2019-03-28] MEDS ORDERED: ENOXAPARIN SODIUM INJ 40 MG/0.4 ML DISP.SYRIN SUBCUT SCH (10:00)
[2019-03-28] MEDS: DOCUSATE SODIUM 100 MG CAPSULE PO SCH (10:27)
[2019-03-28] MEDS: ASPIRIN 81 MG TABLET, ENT COATED PO SCH (10:27)
--- NOTE | 2019-03-28 13:42 | PDOC PROGRESS REPORT ---
Subjective Progress Note for:: 03/28/19 Subjective:: MULUGETA MATHEWS is a 78 year old male with a history of stroke approximately 2 years ago. He also has a history of multiple myeloma in 2009. He is status post stem cell transplant at [facility]. Since that time he has had some left-sided weakness/numbness. He uses a walker around the home. His reports that he ate breakfast in his usual fashion. When he was walking back to the bedroom he felt weak. He collapsed like a rag doll. He did not pass out but he felt dazed. His reports that he "hit "his head on a soft pillow or bag but no sharp object. They had him sit up and he proceeded to vomit. She did remove his dentures. That he did not report any significant coughing with the emesis. By the time the paramedics arrived he had no more vomiting but still felt slightly nauseous. His stroke was approximately 2 years ago. He has had several of these episodes and the last one was approximately 5 months ago. The patient's reports that he used to take medication for hypertension but was taken off of the medicine because of low blood pressure. In addition he has chronic dementia and the patient's stopped his Aricept because she thought it made him "worse ". The family is quite concerned about stroke. The patient had a minimally elevated BUN. He does have thrombocytopenia. Electrolytes and liver panel as well as CBC was relatively unremarkable. He did exhibit some proteinuria. In addition, during my encounter, I did find out that over the last several months the patient has exhibited coughing when eating and drinking. This occurs especially with thin liquids. The patient was referred to the hospital service. 03/28/2019. No acute events overnight. Denies any fever, chills, nausea, vomiting, diarrhea, constipation or any urinary symptoms. Nausea vomiting has improved. Has been evaluated by speech therapy, patient was noted to be aspirating, no new diet recommendation has been placed, pending modified barium swallow. Reason For Visit: NAUSEA AND VOMITING,NEAR SYNCOPE,DYSPHAGIA Physical Exam Vital Signs: Temp Pulse Resp BP Pulse Ox 98.1 F 55 L 17 161/67 H 94 03/28/19 12:00 03/28/19 12:00 03/28/19 12:00 03/28/19 12:00 03/28/19 12:00 Intake & Output 03/27/19 03/28/19 03/29/19 06:59 06:59 06:59 Intake Total 330 240 Output Total 150 150 Balance 180 90 Weight 92.5 kg General appearance: PRESENT: no acute distress, well-developed, well-nourished Head exam: PRESENT: atraumatic, normocephalic Neck exam: ABSENT: carotid bruit, JVD, lymphadenopathy, thyromegaly Respiratory exam: PRESENT: clear to auscultation navya. ABSENT: rales, rhonchi, wheezes Cardiovascular exam: PRESENT: RRR. ABSENT: diastolic murmur, rubs, systolic murmur GI/Abdominal exam: PRESENT: normal bowel sounds, soft. ABSENT: distended, guarding, mass, organolmegaly, rebound, tenderness Neurological exam: PRESENT: alert, altered, awake, oriented to person, oriented to place, CN II-XII grossly intact Results Laboratory Results: 03/28/19 03:47 03/28/19 03:47 03/27/19 03/27/19 03/28/19 10:13 12:42 03:47 WBC 8.2 9.1 RBC 4.53 4.49 Hgb 13.7 13.3 L Hct 41.1 39.5 MCV 91 88 MCH 30.2 29.7 MCHC 33.3 33.8 RDW 14.6 H 14.6 H Plt Count 90 L 79 L Seg Neutrophils % 71.7 68.3 Sodium Potassium Chloride Carbon Dioxide Anion Gap BUN Creatinine Est GFR ( Amer) Glucose Calcium Magnesium Urine Color YELLOW Urine Appearance SLIGHTLY-CLOUDY Urine pH 5.0 Ur Specific [place] 1.024 Urine Protein 30 H Urine Glucose (UA) NEGATIVE Urine Ketones TRACE H Urine Blood NEGATIVE Urine Nitrite NEGATIVE Ur Leukocyte Esterase NEGATIVE Urine WBC (Auto) 1 Urine RBC (Auto) 1 03/28/19 03:47 WBC RBC Hgb Hct MCV MCH MCHC RDW Plt Count Seg Neutrophils % Sodium 141.0 Potassium 4.2 Chloride 109 H Carbon Dioxide 26 Anion Gap 6 BUN 20 Creatinine 1.21 Est GFR ( Amer) > 60 Glucose 86 Calcium 9.3 Magnesium 1.9 Urine Color Urine Appearance Urine pH Ur Specific [place] Urine Protein Urine Glucose (UA) Urine Ketones Urine Blood Urine Nitrite Ur Leukocyte Esterase Urine WBC (Auto) Urine RBC (Auto) 03/27/19 10:13 Troponin I < 0.012 Impressions: Head CT 03/27/19 11:02 IMPRESSION: MILD CHRONIC CHANGES OF ATROPHY AND MICROVASCULAR ISCHEMIA. OLD LACUNAR INFARCTS. NO ACUTE PROCESS. EVIDENCE OF ACUTE STROKE: NO. Assessment and Plan - Diagnosis (1) Syncope and collapse Is this a current diagnosis for this admission?: Yes Plan: Patient and family has denied any syncope or any seizure. EKG no acute changes except for PVCs. Troponin negative. CT head negative. Appears euvolemic. Orthostatic vitals WNL. Continue telemetry, fall, seizure precautions. Continue aspirin. Monitor vitals. (2) Dementia Qualifiers: Dementia type: Alzheimer's disease Alzheimer's disease onset: late-onset Dementia behavioral disturbance: without behavioral disturbance Qualified Code(s): G30.1 - Alzheimer's disease with late onset; F02.80 - Dementia in other diseases classified elsewhere without behavioral disturbance Is this a current diagnosis for this admission?: Yes Plan: Likely vascular dementia due to history of stroke. Used to take Aricept, was stopped by family. CBC WNL. MCV WNL. He is able to hold a meaningful conversation. Will obtain B12, folic acid TSH, T3 and T4. Continue supportive measures. (3) Dysphagia as late effect of cerebrovascular accident (CVA) Is this a current diagnosis for this admission?: Yes Plan: Likely due to underlying CVAs. Speech therapy has been consulted. Dietary recommendation has been noted. Pending modified barium swallow. Follow-up recommendations. (4) Gait disorder Is this a current diagnosis for this admission?: Yes Plan: Chronic. Likely due to remote CVA. Continue PT. (5) Hypertension Qualifiers: Hypertension type: essential hypertension Qualified Code(s): I10 - Essen tial (primary) hypertension Is this a current diagnosis for this admission?: Yes Plan: Euvolemic. Normotensive. Orthostatics are WNL. Not taking any antihypertensives at home. Was stopped due to hypotension. (6) Thrombocytopenia Is this a current diagnosis for this admission?: Yes Plan: Chronic. No sign of acute bleeding. Monitor for bleeding. Patient PCP follow-up.
--- NOTE | 2019-03-29 09:19 | ST Inp Modified Barium Swallow ---
Medical Diagnosis - Medical Diagnoses Medical Diagnosis Description & ICD-10 Code(s): Multiple Myeloma, hypertension, hisotry of ischemic CVA, hypertension ST Inpatient [facility] [place] - General Date: 03/29/19 Date of Onset: 03/28/19 - History History Obtained From: Patient -: Medical Medications: Medications Reviewed - Subjective Current Nutritional Means: PO Current PO Diet: Mechanical - cut, Thickened liquids - On nectar Current Symptoms: Coughing, other - Chronic throat clearing - Objective Assessment: Left Lateral - Food Trials Food Trials Used: Thin liquids, [place] thick liquids, Pureed, Regular The Patient: Was Able to Self Feed, via cup - Assessment Labial Function: Within Normal Limits Lingual Function: Within Functional Limits - Mildly reduced base of tongue retraction leading to residuals Mandibular Function: Within Normal Limits Dentition: Partial, Dentures-Upper - Upper dentures not fully affixed. Velo-Pharyngeal Function: Other - Soft palate elevation noted. No bolus between soft palate and pharyngeal wall Laryngeal Function: Throat Clear, Volitional Swallow - Pharyngeal Stage Initiation of Pharyngeal Stage: Delayed - Initiation at the head of the valleculae Decreased Laryngeal Elevation: Yes - Mildly decreased elevation Reduced Velo-Pharyngeal Closure: no Reduced Pressure Generation: No Reduced Tongue Base Retraction: Yes - Trace column of contrast Pre-Swallowing Pooling in Valleculae: None Pre-Swallowing Pooling in Pyriforms: None Reduced Epiglottic Excursion: No Reduced Pharyngeal Peristalsis: No Multiple Swallows With: Cleared w/ Liquid Assist Post Swallow Residuals in Valleculae: Mild - Mild residue noted across consistencies, cleared with multiple swallows Post Swallow Residuals in Pyriforms: None Pahryngeal Stage Comments: Mildly delayed swallow initation and reduced laryngeal elevation. Trace transient penetration with thin liquids. No aspiration. - Esophageal Stage Cricophageal Function: Normal Upper Esophageal Transit: Normal Cervical Osteophytes Noted: No - Impression/Summary Laryngeal Penetration: Flash - Mild penetration above level of the vocal folds- ejected, during swallow Tracheal Aspiration: no Effective Clearing: yes Patient Presents With: Oral-Pharyngeal dysph. - Patient demontrated reduced mastication of solid food likely due to partial dentition and poorly affixed upper dentures. Delayed initation of pharyngeal swallow and reduced laryngeal elevation lead to mild penetration above the level of the vocal folds with thin liquids. No aspiration noted, therefore, safe to drink thin liquids Risk of Aspiration: Minimal Risk Due To: History of CVA, hypertension - Recommendations NPO: no Solid Diet Recommendations: Mechanical Soft - To aid in oral manipulation. Cut meats Liquid Diet Recommendations: Thin Strict Aspitarion Precautions: No Dysphagia Therapy with FREELANCE DATA ENTRY: No Recommended Techniques: Fully Upright During Meal, Small Bites and Sips Supervision: Independent Other Recommendations: Oral care with toothbrush, even though patient has partial dentition - Time Total Time: 20 Total Timed Minutes: 0
--- NOTE | 2019-03-29 09:26 | RADIOLOGY REPORT (SQ) ---
EXAM DESCRIPTION: BASSAM SWALLOW COMPLETED DATE/TIME: 03/29/2019 9:00 am REASON FOR STUDY: suspect aspiration D50.8 OTHER IRON DEFICIENCY ANEMIAS COMPARISON: None. TECHNIQUE: Videofluoroscopic swallowing examination was performed in conjunction with speech patholo gy. Videofluoroscopic imaging was obtained and reviewed and these are the findings: RADIATION DOSE: Fluoro time 2.34 minutes 1 images saved to PACS. LIMITATIONS: None FINDINGS: The patient was brought into the fluoro room and placed upright on a modified barium swall ow chair. The patient was then given multiple consistencies mixed with barium to swallow under live fluoroscopic video guidance. According to the Speech Pathologist there was laryngeal penetration see n with thin barium. No aspiration identified. All other consistencies were swallowed without incide nt. Please refer to the speech pathology report for further details. IMPRESSION: LARYNGEAL PENETRATION, WITHOUT ASPIRATION, SEEN WITH THIN BARIUM. PLEASE SEE SPEECH PATH OLOGIST REPORT FOR OTHER FINDINGS AND RECOMMENDATIONS. COMMENT: None Quality ID [id number]: Final reports for procedures using fluoroscopy that document radiation exposure hannah skylar, or exposure time and number of fluorographic images (if radiation exposure indices are not avail able) TECHNICAL DOCUMENTATION: JOB ID: [id number] [employer]- All Rights Reserved Reading location - IP/workstation name: [email or web address] [id number]
[2019-03-29] MEDS ORDERED: CHLORTHALIDONE 25 MG TABLET PO SCH (10:00)
[2019-03-29] MEDS: ASPIRIN 81 MG TABLET, ENT COATED PO SCH (10:18)
[2019-03-29] MEDS: DOCUSATE SODIUM 100 MG CAPSULE PO SCH (10:18)
[2019-03-29 16:34] VITALS: BP 146/78
--- NOTE | 2019-03-30 17:35 | PDOC DISCHARGE SUMMARY ---
Impression - Admit/DC Date/PCP Admission Date/Primary Care Provider: 03/27/19 15:19 SHIVANI HUFF MD Discharge Date: 03/29/19 - Discharge Diagnosis (1) Syncope and collapse Is this a current diagnosis for this admission?: Yes (2) Dementia Is this a current diagnosis for this admission?: Yes (3) Dysphagia as late effect of cerebrovascular accident (CVA) Is this a current diagnosis for this admission?: Yes (4) Gait disorder Is this a current diagnosis for this admission?: Yes (5) Hypertension Is this a current diagnosis for this admission?: Yes (6) Thrombocytopenia Is this a current diagnosis for this admission?: Yes - Additional Information Resuscitation Status: Full Code Discharge Diet: Regular Discharge Activity: Activity As Tolerated Referrals: SHIVANI HUFF MD [Primary Care Provider] - 04/03/19 2:00 pm Prescriptions: Chlorthalidone [Hygroton 25 mg Tablet] 25 mg PO DAILY 30 Days #3 tablet Home Medications: Aspirin [Ecotrin 81 mg EC Tablet] 81 mg PO DAILY 03/27/19 Chlorthalidone [Hygroton 25 mg Tablet] 25 mg PO DAILY 30 Days #3 tablet 03/29/19 History of Present Illiness History of Present Illness: MULUGETA MATHEWS is a 78 year old male Hospital Course Hospital Course: (1) Syncope and collapse Patient and family has denied any syncope or any seizure. Unidentified cause. EKG no acute changes except for PVCs. Troponin negative. CT head negative. Appears euvolemic. Orthostatic vitals WNL. Continud telemetry, fall, seizure precautions. Received PT ST OT. Physical therapy consulted, no PT recommended. Continued on aspirin. Monitor vitals. (2) Dementia Likely vascular dementia due to history of stroke. Used to take Aricept, was stopped by family. CBC WNL. MCV WNL. He is able to hold a meaningful conversation. Supportive measures. Lives with . Independent. (3) Dysphagia as late effect of cerebrovascular accident (CVA) Likely due to underlying CVAs. Speech therapy has been consulted. Had a modified barium swallow. Speech therapy recommendations are as follows: NPO: no Solid Diet Recommendations: Mechanical Soft - To aid in oral manipulation. Cut meats Liquid Diet Recommendations: Thin Strict Aspitarion Precautions: No Dysphagia Therapy with CERTIFIED MEDICAL ASST: No Recommended Techniques: Fully Upright During Meal, Small Bites and Sips Supervision: Independent Other Recommendations: Oral care with toothbrush, even though patient has partial dentition Patient was notified and counseled about speech therapy recommendations. (4) Gait disorder Chronic. Likely due to remote CVA. Received PT, OT, ST. Fall precautions employed. (5) Hypertension Euvolemic. Normotensive. Orthostatics are WNL. Not taking any antihypertensives at home. BP meds were stopped due to hypotension in the past. Was noted to be hypertensive. Was started on chlorthalidone. Normotensive and euvolemic at the time of discharge. Discharged on chlorthalidone to follow-up with PCP. (6) Thrombocytopenia Chronic. No sign of acute bleeding. Monitored for bleeding. Patient PCP follow-up. Physical Exam Vital Signs: Temp Pulse Resp BP Pulse Ox 98.2 F 67 18 134/73 H 94 03/29/19 16:06 03/29/19 16:06 03/29/19 16:06 03/29/19 16:06 03/29/19 16:06 Intake & Output 03/29/19 03/30/19 03/31/19 06:59 06:59 06:59 Intake Total 480 480 Output Total 600 200 Balance -120 280 Weight 72.4 kg Results Laboratory Results: WBC 9.1 10^3/uL (4.0-10.5) 03/28/19 03:47 RBC 4.49 10^6/uL (4.35-5.55) 03/28/19 03:47 Hgb 13.3 g/dL (13.5-17.0) L 03/28/19 03:47 Hct 39.5 % (37.9-51.0) 03/28/19 03:47 MCV 88 fl (80-97) 03/28/19 03:47 MCH 29.7 pg (27.0-33.4) 03/28/19 03:47 MCHC 33.8 g/dL (32.0-36.0) 03/28/19 03:47 RDW 14.6 % (11.5-14.0) H 03/28/19 03:47 Plt Count 79 10^3/uL (150-450) L 03/28/19 03:47 Lymph % (Auto) 21.8 % (13-45) 03/28/19 03:47 Griggs % (Auto) 8.2 % (3-13) 03/28/19 03:47 Eos % (Auto) 1.0 % (0-6) 03/28/19 03:47 Baso % (Auto) 0.7 % (0-2) 03/28/19 03:47 Absolute Neuts (auto) 6.2 10^3/uL (1.7-8.2) 03/28/19 03:47 Absolute Lymphs (auto) 2.0 10^3/uL (0.5-4.7) 03/28/19 03:47 Absolute Monos (auto) 0.7 10^3/uL (0.1-1.4) 03/28/19 03:47 Absolute Eos (auto) 0.1 10^3/uL (0.0-0.6) 03/28/19 03:47 Absolute Basos (auto) 0.1 10^3/uL (0.0-0.2) 03/28/19 03:47 Seg Neutrophils % 68.3 % (42-78) 03/28/19 03:47 Sodium 141.0 mmol/L (137-145) 03/28/19 03:47 Potassium 4.2 mmol/L (3.6-5.0) 03/28/19 03:47 Chloride 109 mmol/L (98-107) H 03/28/19 03:47 Carbon Dioxide 26 mmol/L (22-30) 03/28/19 03:47 Anion Gap 6 (5-19) 03/28/19 03:47 BUN 20 mg/dL (7-20) 03/28/19 03:47 Creatinine 1.21 mg/dL (0.52-1.25) 03/28/19 03:47 Est GFR ( Amer) > 60 (>60) 03/28/19 03:47 Est GFR (MDRD) Non-Af 58 (>60) L 03/28/19 03:47 Glucose 86 mg/dL (75-110) 03/28/19 03:47 Calcium 9.3 mg/dL (8.4-10.2) 03/28/19 03:47 Magnesium 1.9 mg/dL (1.6-2.3) 03/28/19 03:47 Total Bilirubin 1.0 mg/dL (0.2-1.3) 03/27/19 10:13 Direct Bilirubin 0.3 mg/dL (0.0-0.4) 03/27/19 10:13 Neonat Total Bilirubin Not Reportable 03/27/19 10:13 Neonat Direct Bilirubin Not Reportable 03/27/19 10:13 Neonat Indirect Bili Not Reportable 03/27/19 10:13 AST 25 U/L (17-59) 03/27/19 10:13 ALT 13 U/L (<50) 03/27/19 10:13 Alkaline Phosphatase 36 U/L (38-126) L 03/27/19 10:13 Troponin I < 0.012 ng/mL 03/27/19 10:13 Total Protein 7.2 g/dL (6.3-8.2) 03/27/19 10:13 Albumin 3.9 g/dL (3.5-5.0) 03/27/19 10:13 Urine Color YELLOW 03/27/19 12:42 Urine Appearance SLIGHTLY-CLOUDY 03/27/19 12:42 Urine pH 5.0 (5.0-9.0) 03/27/19 12:42 Ur Specific Chandler 1.024 03/27/19 12:42 Urine Protein 30 mg/dL (NEGATIVE) H 03/27/19 12:42 Urine Glucose (UA) NEGATIVE mg/dL (NEGATIVE) 03/27/19 12:42 Urine Ketones TRACE mg/dL (NEGATIVE) H 03/27/19 12:42 Urine Blood NEGATIVE (NEGATIVE) 03/27/19 12:42 Urine Nitrite NEGATIVE (NEGATIVE) 03/27/19 12:42 Urine Bilirubin NEGATIVE (NEGATIVE) 03/27/19 12:42 Urine Urobilinogen 2.0 mg/dL (<2.0) H 03/27/19 12:42 Ur Leukocyte Esterase NEGATIVE (NEGATIVE) 03/27/19 12:42 Urine WBC (Auto) 1 /HPF 03/27/19 12:42 Urine RBC (Auto) 1 /HPF 03/27/19 12:42 U Hyaline Cast (Auto) 7 /LPF 03/27/19 12:42 Squamous Epi Cells Auto <1 /HPF 03/27/19 12:42 Urine Mucus (Auto) MOD /LPF 03/27/19 12:42 Urine Ascorbic Acid NEGATIVE (NEGATIVE) 03/27/19 12:42 03/27/19 10:13 Troponin I < 0.012 Impressions: Head CT 03/27/19 11:02 IMPRESSION: MILD CHRONIC CHANGES OF ATROPHY AND MICROVASCULAR ISCHEMIA. OLD LACUNAR INFARCTS. NO ACUTE PROCESS. EVIDENCE OF ACUTE STROKE: NO. Modified Barium Swallow 03/29/19 00:00 IMPRESSION: LARYNGEAL PENETRATION, WITHOUT ASPIRATION, SEEN WITH THIN BARIUM. PLEASE SEE SPEECH PATHOLOGIST REPORT FOR OTHER FINDINGS AND RECOMMENDATIONS. Stroke Is this a Stroke Patient?: No Acute Heart Failure - Is this a Heart Failure Patient?: No
== END 2019-03-29 18:05 | disposition home health service (06) ==
LOC: ER 10:05 → EH 15:19 → 4W 17:25
PROVIDERS: ADMIT Hospitalist; ATTEND Hospitalist
DX: R55 Syncope and collapse (principal); I69.391 Dysphagia following cerebral infarction; R13.12 Dysphagia, oropharyngeal phase; G30.1 Alzheimer's disease with late onset; F02.80 Dementia in other diseases classified elsewhere, unspecified severity, without behavioral disturbance, psychotic disturbance, mood disturbance, and anxiety; I10 Essential (primary) hypertension; D69.6 Thrombocytopenia, unspecified; I49.3 Ventricular premature depolarization; R26.89 Other abnormalities of gait and mobility; R11.2 Nausea with vomiting, unspecified; R80.9 Proteinuria, unspecified; Z94.84 Stem cells transplant status; K59.00 Constipation, unspecified; R35.1 Nocturia; R35.0 Frequency of micturition; R35.8 Other polyuria; R60.0 Localized edema; H57.02 Anisocoria; R20.0 Anesthesia of skin; R29.6 Repeated falls; S40.022A Contusion of left upper arm, initial encounter; S60.222A Contusion of left hand, initial encounter; X58.XXXA Exposure to other specified factors, initial encounter; Z87.891 Personal history of nicotine dependence; Z85.79 Personal history of other malignant neoplasms of lymphoid, hematopoietic and related tissues; Z82.49 Family history of ischemic heart disease and other diseases of the circulatory system; Z79.82 Long term (current) use of aspirin
CPT/HCPCS: 93005; 99285; 36415 ×2; 83735; 85025 ×2; 80048; 80053; 81001; 84484; 74230; 70450; 93010; 97116; 97162; 92610; 92611; G0378 ×3; A9270 ×7; J7030